=== PATIENT | male | born 1965 | race African-American/Black ===

== ENCOUNTER 2017-09-09 11:21 | Emergency (ER) | payer MEDICARE, MEDICAID ==
[~2017-09-09] VITALS: Ht 182.9 cm; Wt 100.0 kg
[2017-09-09] MEDS ORDERED: norco (11:32)
[2017-09-09] MEDS ORDERED: muscle relaxer (11:32)
[2017-09-09] MEDS ORDERED: IBUPROFEN 800MG TABLET PO ONE (12:00)
[2017-09-09] MEDS ORDERED: BACITRACIN ZINC OINT UDPKT TOP ONE (13:45)
[2017-09-09] MEDS ORDERED: HYDROCODONE/ACETAMINOPHEN 5/325MG TABLET PO ONE (13:45)
[2017-09-09] MEDS ORDERED: LIDOCAINE HCL 1% 20ML VIAL (Pyxis) INJ MC ONE (13:45)
[2017-09-09 14:14] VITALS: BP 127/79
== END 2017-09-09 15:40 | disposition left against medical advice (07) ==
LOC: ER 11:21
DX: S61.412A Laceration without foreign body of left hand, initial encounter (principal); F17.200 Nicotine dependence, unspecified, uncomplicated; W22.8XXA Striking against or struck by other objects, initial encounter; Y93.89 Activity, other specified; Y92.098 Other place in other non-institutional residence as the place of occurrence of the external cause; Y99.8 Other external cause status
CPT/HCPCS: 12001; 73130; 99284; J3490

== ENCOUNTER 2018-04-26 15:34 | Emergency (ER) | payer MEDICARE, MEDICAID ==
[~2018-04-26] VITALS: Ht 172.7 cm; Wt 86.0 kg
[~2018-04-26 15:34] MED LIST: muscle relaxer; norco
[2018-04-26] MEDS ORDERED: HYDROCODONE/ACETAMINOPHEN 5/325MG TABLET PO ONE (16:15)
[2018-04-26 16:50] VITALS: BP 125/82
== END 2018-04-26 17:10 | disposition home or self-care (01) ==
LOC: ER 15:34
DX: M79.641 Pain in right hand (principal); Z98.890 Other specified postprocedural states
CPT/HCPCS: 73130; 99283